=== PATIENT | female | born 1970 | race Caucasian/White ===

== ENCOUNTER → 2019-02-01 | Outpatient (CLI) | payer SELFPAY ==
--- NOTE | 2019-02-01 14:33 | USB ---
Reason for exam: additional evaluation requested from abnormal screening. History: Took hormonal contraceptives beginning at age 16. Physical Findings: Breast exam preformed at baseline screening. US Breast Limited BILAT Right limited breast ultrasound including focal area of concern, retroareolar and axilla demonstrates a 0.5 x 0.4 x 0.4cm cystic lesion at 10 o'clock and a 0.9 x 0.8 x 0.4cm septated cyst at 10 o'clock. Left limited breast ultrasound including focal area of concern, retroareolar and axilla demonstrates a 0.7 x 0.6 x 0.3cm cystic lesion at 1 o'clock and a 0.8 x 0.6 x 0.4cm cluster of cysts at 2 o'clock. These results were verbally communicated with the patient and result sheet given to the patient on 02/01/19. ASSESSMENT: Benign, BI-RAD 2 RECOMMENDATION: Return to routine screening mammogram schedule for both breasts.
== END | disposition home or self-care (01) ==
LOC: RADUSWWP 08:49 → MERGE 17:20
PROVIDERS: ATTEND Obstetrics & Gynecology
DX: R92.8 Other abnormal and inconclusive findings on diagnostic imaging of breast (principal)